=== PATIENT | male | born 1995 | race Two or more races ===

== ENCOUNTER 2021-07-29 13:35 | Emergency (ER) | payer OTHER, SELFPAY ==
[2021-07-29 14:08] VITALS: BP 149/92; PULSE 99; RESP 16; TEMP 36.1; O2SAT 99; BMI 24.8
--- NOTE | 2021-07-29 14:36 | ED.MALEGU ---
HPI - Male Genitourinary General Chief complaint: Urogenital-Male Stated complaint: foreskin issue/swelling Time Seen by Provider: 07/29/21 14:36 Source: patient Mode of arrival: ambulatory Limitations: no limitations History of Present Illness HPI Narrative: swelling and pain to foreskin. No rash, no pain, no discharge from the from the penis MD Complaint: other Onset (ago): day(s) Duration: constant Radiation: penis Severity: mild Exacerbating factors: none Associated symptoms: Reports denies other symptoms Related Data Previous Rx's Medication Instructions Recorded cephalexin 500 mg capsule 500 mg PO BID 7 Days #14 cap 07/29/21 Allergies Allergy/AdvReac Type Severity Reaction Status Date / Time No Known Allergies Allergy Verified 07/29/21 14:48 Review of Systems Constitutional: Constitutional: Reports no additional constitutional complaints Eyes: Eyes: Reports no additional eye complaints ENT: Denies dizziness Cardiovascular: Cardiovascular: Reports no additional cardiovascular complaints Respiratory: Respiratory: Reports as per HPI Gastrointestinal: Gastrointestinal: Reports no additional gastrointestinal complaints Musculoskeletal: Musculoskeletal: Reports no additional musculoskeletal complaints Integumentary/Breasts: Skin/Breast: Denies rash Neurologic: Reports system reviewed and no additional complaints, except as documented, Denies dizziness and Denies Sensory deficit (Neuro) Psychiatric: Psychiatric: Denies anxiety Physical Exam Vital Signs: Vital Signs: Last Vital Signs Temp 97 F 07/29/21 14:08 Pulse 99 07/29/21 14:08 Resp 16 07/29/21 14:08 BP 149/92 H 07/29/21 14:08 Pulse Ox 99 07/29/21 14:08 BMI result Body Mass Index 24.8 Const: General: healthy appearing Nutritional Appearance: average body habitus Orientation/consciousness: oriented to person and patient oriented x3 Limitations: no limitations HEENT: Head: Yes normal to inspection Ears: external ears normal General nose exam: Normal external nose present Mouth: Normal oral and palatal mucosa present and oropharynx normal Throat: Yes posterior oropharynx normal Eyes: General: appearance normal, both eyes and all related structures Neck: Other: supple Neck: Yes normal visual inspection Chest: Chest palpation & inspection: normal inspection of the chest Resp: Auscultation: clear to auscultation bilaterally Cardio: Jugular venous distension: no JVD Rate: regular rate Rhythm: regular rhythm Heart sounds: S1 normal heart sound present and S2 normal heart sound present GI: Inspection: Yes normal to inspection Palpation (GI): Soft to palpation, nontender and No hepatosplenomegaly present Auscultation: normal bowel sounds : Other: patient with some minor swelling to foreskin with retraction, slight erythema to one part of forskin. Skin: General skin exam: no rashes or lesions noted Neuro: General: oriented to person and patient oriented x3 Cranial nerves: Yes CN's II-XII intact bilaterally Motor exam (neuro): 5/5 motor strength present throughout Sensory Exam: No Sensory deficit (Neuro) Extrem: General: Yes normal to inspection Psych: Appearance: grossly normal Course Reevaluation(s) Reevaluation #1: patient had localized swelling to foreskin that he tried to stick a pin in and drain now with slight erythema, swelling easily reduced, will place on keflex Time: 14:46 Discharge Plan Discharge Clinical Impression: Paraphimosis, Cellulitis Patient Disposition: Home, Self-Care Instructions: Cellulitis (ED), Acute Paraphimosis (ED) Additional Instructions: keep foreskin over the head of the penis until swelling goes down Prescriptions: New cephalexin 500 mg capsule 500 mg PO BID 7 Days Qty: 14 0RF Referrals: Physician,Unknown J [Primary Care Provider] - 1 week
== END 2021-07-29 15:05 | disposition home or self-care (01) ==
LOC: HO.ED 14:52
PROVIDERS: Emergency Provider Emergency Medicine
DX: N47.1 Phimosis (principal); N48.22 Cellulitis of corpus cavernosum and penis
CPT/HCPCS: 99283